=== PATIENT | male | born 1985 | race African-American/Black ===

== ENCOUNTER 2022-01-16 10:10 | Emergency (ER) | payer MEDICARE, MEDICAID ==
[~2022-01-16] VITALS: Ht 188 cm; Wt 100.0 kg
[2022-01-16 12:18] LABS: CLARITY URINE CLEAR (CLEAR); COLOR URINE YELLOW (YELLOW); KETONES URINE NEGATIVE (NEGATIVE); LEUKOCYTE ESTERASE URINE NEGATIVE (NEGATIVE); NITRITE URINE NEGATIVE (NEGATIVE); OCCULT BLOOD URINE NEGATIVE (NEGATIVE); PROTEIN URINE NEGATIVE (NEGATIVE); SPECIFIC GRAVITY URINE 1.011 (1.005-1.030); UROBILINOGEN URINE 0.2 E.U./dL (0.2-1.0)
[2022-01-16] MEDS ORDERED: LIDOCAINE HCL 1% 20ML VIAL (Pyxis) INJ INFIL STA (12:24)
[2022-01-16] MEDS ORDERED: CEFTRIAXONE SODIUM 500 MG/VIAL IM ONE (12:30)
[2022-01-16] MEDS ORDERED: PYR200 MT (12:30)
[2022-01-16] MEDS ORDERED: DOXY-326 PO (12:30)
[2022-01-16 12:54] VITALS: BP 147/78
[2022-01-18 04:08] LABS: NEISSERIA GONORRHOEAE NAA Negative (Negative)
== END 2022-01-16 12:55 | disposition home or self-care (01) ==
LOC: ER 10:10
DX: N34.2 Other urethritis (principal); F12.10 Cannabis abuse, uncomplicated
CPT/HCPCS: 81003; 87491; 87591; 96372; 99283; J0696; J3490

== ENCOUNTER 2022-01-25 13:24 | Emergency (ER) | payer MEDICARE, MEDICAID ==
[~2022-01-25] VITALS: Ht 188 cm; Wt 100.0 kg
[~2022-01-25 13:24] MED LIST: DOXY-326 PO; PYR200 MT
[2022-01-25 13:35] VITALS: BP 174/112
[2022-01-25 16:59] LABS: CLARITY URINE CLOUDY (CLEAR); COLOR URINE YELLOW (YELLOW); KETONES URINE TRACE (NEGATIVE); LEUKOCYTE ESTERASE URINE NEGATIVE (NEGATIVE); NITRITE URINE NEGATIVE (NEGATIVE); OCCULT BLOOD URINE NEGATIVE (NEGATIVE); PH URINE 5.5 (4.5-8.0); PROTEIN URINE NEGATIVE (NEGATIVE); UROBILINOGEN URINE 0.2 E.U./dL (0.2-1.0)
[2022-01-25] MEDS ORDERED: NAPR-681 PO (17:47)
[2022-01-25] MEDS ORDERED: PYR200 PO (17:47)
[2022-01-29 06:09] LABS: NEISSERIA GONORRHOEAE NAA Negative (Negative)
== END 2022-01-25 18:07 | disposition home or self-care (01) ==
LOC: ER 13:24
DX: N34.2 Other urethritis (principal)
CPT/HCPCS: 81003; 87491; 87591; 99283